=== PATIENT | female | born 1945 | race Caucasian/White ===

== ENCOUNTER → 2017-10-17 | Outpatient (CLI) | payer MEDICARE ==
[~2017-10-17] MED LIST: AMIT50; AMLO10 PO; AMLO5 PO; ASPI325 PO; ASPI81CH; ATEN50; ATEN50 PO; Aspir 8181 MG; CLOP75; CYCL10 PO; DIPATR; DIPATR PO; EZET10-20; EZET10-20 PO; GABA300 PO; GLIM2; GLIP5 PO; GLIP5ER; ISOMON60ER PO; Isosorbide Mono60 MG; LEVSOD100; LEVSOD100 PO; METF500 PO; METFORMIN HCL1000 MG; Neurontin300 MG; Nitrostat0.4 MG SL; Norvasc2.5 MG; PANT40; PANT40 PO; SIMV40 PO
[2017-10-17 19:11] LABS: BASOPHILS ABSOLUTE AUTO 0.03 K/mm3 (0.00-0.23); BASOPHILS PERCENT AUTO 0 % (0-2); EOSINOPHILS ABSOLUTE AUTO 0.18 K/mm3 (0.00-0.68); EOSINOPHILS PERCENT AUTO 2 % (0-6); Hemoglobin 12.5 g/dL (11.5-16.0); IMMATURE GRAN ABSOLUTE AUTO 0.04 K/mm3 (0.00-0.10); IMMATURE GRAN PERCENT AUTO 1 % (0-1); LYMPHOCYTES ABSOLUTE AUTO 1.74 K/mm3 (0.84-5.20); LYMPHOCYTES PERCENT AUTO 22 % (21-46); MONOCYTES ABSOLUTE AUTO 0.44 K/mm3 (0.16-1.47); MONOCYTES PERCENT AUTO 6 % (4-13); Mean Corpuscular HGB 27.7 pg (26.0-34.0); Mean Corpuscular HGB Conc 32.9 g/dL (31.5-36.5); Mean Corpuscular Volume 84 fL (80-100); Mean Platelet Volume 11.8 fL (9.1-12.4); NEUTROPHILS ABSOLUTE AUTO 5.53 K/mm3 (1.96-9.15); NEUTROPHILS PERCENT AUTO 69 % (41-73); Platelet Count 305 K/mm3 (150-400); RDW Coefficient Variation 13.6 % (11.7-14.2); Red Blood Cell Count 4.52 M/mm3 (3.80-5.20); White Blood Cell Count 7.96 K/mm3 (4.00-11.30)
[2017-10-17 19:14] LABS: Calcium, Blood 9.2 mg/dL (8.5-10.1)
== END | disposition home or self-care (01) ==
LOC: LAB EV 19:05 → LAB SHORT 19:05
PROVIDERS: Physician Assistant Surgical
DX: R53.83 Other fatigue (principal)
CPT/HCPCS: 80048; 85025

== ENCOUNTER 2018-05-27 06:43 | Day surgery (SDC) | payer MEDICARE ==
[~2018-05-27] VITALS: Ht 162.6 cm; Wt 67.8 kg
[~2018-05-27 06:43] MED LIST changes: +AMIT50 PO; +ASPI81CH PO; -ATEN50; +ATOR40TA PO; +Aspir 8181 MG PO; +CAL-CITRATE PL1 EACH PO; +CLOP75 PO; +DIPATRL; +FURO40 PO; +GABA600 PO; +GLIM2 PO; +GLIP10 PO; +GLIP10ER PO; -GLIP5ER; +GLIP5ER PO; +Glucophage1000 MG PO; +INSULANPEN SC; +ISOMON20 PO; +Isosorbide Mono60 MG PO; -LEVSOD100; +LEVSOD125 PO; +LISI5 PO; +Lasix40 MG PO; +METF500C PO; -METFORMIN HCL1000 MG; +METFORMIN HCL1000 MG PO; +NAPR220 PO; -Neurontin300 MG; +Neurontin300 MG PO; +PIOG15 PO; +PIOG30 PO; +PROBIOTIC1 EAC2 PO
== END 2018-05-27 08:40 | disposition home or self-care (01) ==
LOC: ORSCSDS 06:43
PROVIDERS: Ophthalmology
PROC: 08RK3JZ Replacement of Left Lens with Synthetic Substitute, Percutaneous Approach (ICD-10-PCS; principal; 2018-05-27 08:00)
DX: H25.12 Age-related nuclear cataract, left eye (principal); I10 Essential (primary) hypertension; I25.10 Atherosclerotic heart disease of native coronary artery without angina pectoris; E11.9 Type 2 diabetes mellitus without complications; E03.9 Hypothyroidism, unspecified; Z79.4 Long term (current) use of insulin; Z79.899 Other long term (current) drug therapy
CPT/HCPCS: 82947; J2001; J2250; J3010; J3301; J7120; V2632

== ENCOUNTER 2018-08-05 06:06 | Day surgery (SDC) | payer MEDICARE ==
[~2018-08-05] VITALS: Ht 162.6 cm; Wt 72.3 kg
[2018-08-05] MEDS ORDERED: COLE1 PO (06:39)
== END 2018-08-05 08:00 | disposition home or self-care (01) ==
LOC: ORSCSDS 06:06
PROVIDERS: Ophthalmology
PROC: 08RJ3JZ Replacement of Right Lens with Synthetic Substitute, Percutaneous Approach (ICD-10-PCS; principal; 2018-08-05 07:30)
DX: H25.11 Age-related nuclear cataract, right eye (principal); E11.9 Type 2 diabetes mellitus without complications; I10 Essential (primary) hypertension; I25.10 Atherosclerotic heart disease of native coronary artery without angina pectoris; K21.9 Gastro-esophageal reflux disease without esophagitis; Z79.899 Other long term (current) drug therapy; Z79.4 Long term (current) use of insulin; Z79.82 Long term (current) use of aspirin
CPT/HCPCS: 82947; J2001; J2250; J3010; J3301; V2632

== ENCOUNTER 2020-07-28 10:52 | Day surgery (SDC) | payer MEDICARE ==
[~2020-07-28] VITALS: Ht 162.6 cm; Wt 126.8 kg
[~2020-07-28 10:52] MED LIST changes: +Amlodipine Bes2.5 MG PO; +COLE1 PO; +COLESTID1 G1 PO; +GLUCOPHAGE1000 M1 PO; +INSULANI SC; +Isosorbide Mono30 MG PO; +LEVOTHYROXINE PO; +LOMOTIL 2.5-0.1 EACH; +NITR.4SL SL
== END 2020-07-28 13:26 | disposition home or self-care (01) ==
LOC: ORSCSDS 10:52
PROVIDERS: Internal Medicine Gastroenterology
PROC: 0DBE8ZX Excision of Large Intestine, Via Natural or Artificial Opening Endoscopic, Diagnostic (ICD-10-PCS; principal; 2020-07-28 12:00)
PROC: 0DB78ZX Excision of Stomach, Pylorus, Via Natural or Artificial Opening Endoscopic, Diagnostic (ICD-10-PCS; principal; 2020-07-28 12:00)
PROC: 0DB98ZX Excision of Duodenum, Via Natural or Artificial Opening Endoscopic, Diagnostic (ICD-10-PCS; principal; 2020-07-28 12:00)
DX: R19.7 Diarrhea, unspecified (principal); R63.4 Abnormal weight loss; R63.0 Anorexia; K44.9 Diaphragmatic hernia without obstruction or gangrene; K22.10 Ulcer of esophagus without bleeding; K29.70 Gastritis, unspecified, without bleeding; K57.30 Diverticulosis of large intestine without perforation or abscess without bleeding; K64.8 Other hemorrhoids; I10 Essential (primary) hypertension; E11.42 Type 2 diabetes mellitus with diabetic polyneuropathy; Z79.4 Long term (current) use of insulin; Z79.899 Other long term (current) drug therapy
CPT/HCPCS: 82947; 88305; 88342; J2704; J7120

== ENCOUNTER 2022-11-29 20:20 | Emergency (ER) | payer MEDICARE ==
[~2022-11-29] VITALS: Ht 162.6 cm; Wt 65.8 kg
[2022-11-29 20:29] VITALS: BP 136/63
[2022-11-29] MEDS ORDERED: ALOGLIPTIN25 M1 PO (20:32)
[2022-11-29] MEDS ORDERED: Aspir 8181 MG PO (20:33)
[2022-11-29] MEDS ORDERED: DONE5 PO (20:34)
[2022-11-29] MEDS ORDERED: SITA100T2 PO (20:35)
[2022-11-29] MEDS ORDERED: VASCEPA1 G1 PO (20:37)
[2022-11-29] MEDS ORDERED: Acetaminophen325 M1 PO (20:38)
== END 2022-11-29 22:45 | disposition home or self-care (01) ==
LOC: ER 20:20
DX: S32.591A Other specified fracture of right pubis, initial encounter for closed fracture (principal); E11.9 Type 2 diabetes mellitus without complications; I10 Essential (primary) hypertension; F03.90 Unspecified dementia, unspecified severity, without behavioral disturbance, psychotic disturbance, mood disturbance, and anxiety; W08.XXXA Fall from other furniture, initial encounter; Z88.5 Allergy status to narcotic agent; Z91.09 Other allergy status, other than to drugs and biological substances; Z79.82 Long term (current) use of aspirin; Z79.899 Other long term (current) drug therapy; Z79.890 Hormone replacement therapy; Z79.84 Long term (current) use of oral hypoglycemic drugs; Z95.5 Presence of coronary angioplasty implant and graft; Z87.891 Personal history of nicotine dependence
CPT/HCPCS: 73502; 73560-RT; 99283-25

== ENCOUNTER 2022-11-30 07:46 | Inpatient (IN) | payer MEDICARE ==
[~2022-11-30] VITALS: Ht 160 cm; Wt 54.4 kg
[~2022-11-30 07:46] MED LIST changes: +ALOGLIPTIN25 M1 PO; +Acetaminophen325 M1 PO; +DONE5 PO; +SITA100T2 PO; +VASCEPA1 G1 PO
[2022-11-30 12:05] LABS: BASOPHILS ABSOLUTE AUTO 0.01 K/mm3 (0.00-0.23); BASOPHILS PERCENT AUTO 0 % (0-2); EOSINOPHILS PERCENT AUTO 0 % (0-6); Hematocrit 39.2 % (33.0-51.0); Hemoglobin 13.9 g/dL (11.5-16.0); IMMATURE GRAN ABSOLUTE AUTO 0.11 K/mm3 (0.00-0.10); IMMATURE GRAN PERCENT AUTO 1 % (0-1); LYMPHOCYTES ABSOLUTE AUTO 0.94 K/mm3 (0.84-5.20); LYMPHOCYTES PERCENT AUTO 6 % (21-46); MONOCYTES ABSOLUTE AUTO 1.04 K/mm3 (0.16-1.47); MONOCYTES PERCENT AUTO 6 % (4-13); Mean Corpuscular HGB 30.3 pg (26.0-34.0); Mean Corpuscular HGB Conc 35.5 g/dL (31.5-36.5); Mean Corpuscular Volume 86 fL (80-100); Mean Platelet Volume 11.3 fL (9.1-12.4); NEUTROPHILS ABSOLUTE AUTO 14.25 K/mm3 (1.96-9.15); NEUTROPHILS PERCENT AUTO 87 % (41-73); Platelet Count 245 K/mm3 (150-400); RDW Coefficient Variation 12.7 % (11.7-14.2); RDW Standard Deviation 39.2 fL (35.1-46.3); Red Blood Cell Count 4.58 M/mm3 (3.80-5.20); White Blood Cell Count 16.35 K/mm3 (4.00-11.30)
[2022-11-30 12:39] LABS: Albumin, Blood 3.7 g/dL (3.4-5.0); Bilirubin, Total 2.9 mg/dL (0.1-1.0); Bun/Creatinine Ratio 32.3 (12.0-20.0); Calcium, Blood 9.1 mg/dL (8.5-10.1); Creatinine, Blood 0.77 mg/dL (0.40-1.00); Globulin, Blood 3.6 g/dL (2.2-4.0); Potassium, Blood 3.7 mmol/L (3.5-5.5); Total Protein, Blood 7.3 g/dL (6.4-8.2)
[2022-11-30 16:49] VITALS: BP 147/97
--- NOTE | 2022-11-30 16:50 | NUR ---
RECEIVED REPORT FROM ESTRELLA BARBER RN. REPORT GIVEN TO STEPHY JONES ASSUMING CARE ON SURGICAL FLOOR.
[2022-11-30 16:51] VITALS: BP 147/97
--- NOTE | 2022-11-30 16:56 | NUR ---
PT ARRIVED TO UNIT AT [facility]50 FROM ER. WHILE SETTLING PT IT WAS NOTED BY THIS RN THAT PT HAD STOOL AND DRIED BLOOD PRESENT TO VALENCIA AREA. VALENCIA CARE DONE, SMALL ABRASIONS/BRUISING/TEAR PRESENT, ACTIVLY BLEEDING FROM SMALL TEAR AT PROXIMAL LABIA MINORA. IN ROOM AND NOTIFIED OF FINDINGS. FEM CATH DONE, URINE CLOUDY W/SEDEMENT-SPECIMIN SENT FOR URINALYSIS W/CX IF INDICATED.
[2022-11-30 16:57] LABS: Source, Urine Fem Cath
[2022-11-30 17:51] LABS: Appearance, Urine Cloudy (Clear); Bilirubin, Urine Neg (Neg); Blood, Urine 4+ (Neg); Color, Urine Yellow (P-Yellow); Glucose Qualitative, Urine 2+ (Neg); Ketones, Urine 1+ (Neg); Leukocyte Esterase, Urine 3+ (Neg); Nitrite, Urine Pos (Neg); Protein, Urine 2+ (Neg); Urobilinogen, Urine NORM (Normal)
[2022-11-30 18:12] LABS: Bacteria Many /hpf; Red Blood Cells, Urine 0-2 /hpf (0-2); Squamous Epithelial Cells Rare /hpf (Few); Transitional Epithelial Cells Few /hpf (0-Rare); White Blood Cells, Urine 50-100 /hpf (0-5)
--- NOTE | 2022-11-30 19:00 | NUR ---
pt's family with pt in room. pt tolerating nursing interventions with verbal complaints, only minimal attempts to pull away while drawing blood and administering IV medication. pt is oriented to self. Pure-wick and attends in place.
[2022-11-30 20:05] VITALS: BP 152/69
[2022-12-01 03:52] VITALS: BP 180/78
[2022-12-01 05:15] LABS: Hematocrit 37.3 % (33.0-51.0); Hemoglobin 12.6 g/dL (11.5-16.0); Mean Corpuscular HGB Conc 33.8 g/dL (31.5-36.5); Mean Corpuscular Volume 89 fL (80-100); Mean Platelet Volume 10.9 fL (9.1-12.4); Platelet Count 184 K/mm3 (150-400); RDW Coefficient Variation 12.6 % (11.7-14.2); White Blood Cell Count 13.35 K/mm3 (4.00-11.30)
[2022-12-01 05:53] LABS: Calcium, Blood 7.9 mg/dL (8.5-10.1); Creatinine, Blood 0.57 mg/dL (0.40-1.00); Potassium, Blood 3.7 mmol/L (3.5-5.5)
[2022-12-01 06:53] VITALS: BP 150/78
--- NOTE | 2022-12-01 07:50 | NUR ---
SUMMARY PT REMAINED CONFUSED THROUGH THE NIGHT, SHE HAD REMOVED HER IV X2,CONTINUES TO BE COMBATIVE WITH STAFF, ON RA, VSS, PUREWICK IN PLACE, NO OTHER CHANGES NOTED, CALL LIGHT IN REACH, BED ALARM IS ON, REPORT GIVEN TO DAY RN
--- NOTE | 2022-12-01 13:23 | NUR ---
IV ACCESS: PT PULLED PERIPHERAL IV OUT. UNABLE TO GAIN ACCESS AFTER 2 ATTEMPTS. POWERGLIDE PLACED BY ANOTHER RN. ABLE TO MEDICATE FOR PAIN AND RESTART IV FLUIDS. PT NOT EATING AND ONLY TAKING SIPS OF FLUIDS. REMAINS ON SCHEDULED IV ABX. IV CONCEALED WITH LILLY WRAP AND SLEEVE. FAMILY AT BEDSIDE, HELPFUL AND ATTENTIVE. FAMILY ABLE TO GET PT TO TAKE AM MEDS THAT SHE REFUSED.
--- NOTE | 2022-12-01 17:51 | NUR ---
VOICEMAIL LEFT WITH [facility] [phone] AT 1751 REGARDING THE ASSESSMENT FINDINGS OF ABRASIONS/TEARS/BRUISING ON LABIA MINOR YESTERDAY.
[2022-12-01 18:25] VITALS: BP 140/77
[2022-12-01 19:21] VITALS: BP 146/71
--- NOTE | 2022-12-01 19:47 | NUR ---
PT HAS BEEN CONFUSED AND COMBATIVE THIS SHIFT. PT RESISTANT TO MOST CARE. FAMILY ABLE TO GET PT TO TAKE MEDS THIS AFTERNOON AFTER SHE SPIT THEM FOR THIS RN. TURNING IN BED TOLERATED. PT HAD POWERGLIDE PLACED FOR MULTIPLE IV STARTS THAT SHE PULLED. SECURED AND INFUSING AT THIS TIME. PT HAS POOR PO INTAKE, OFFERING SIPS OF FLUIDS FREQUENTLY. DENTURES REMOVED AND CLEANED. PUREWICK IN PLACE WITH ATTENDS OVER IT. PAIN MANAGED WITH PRN FENTANYL. BLOOD SUGARS STABLE AND TREATED ORDERED. UA FROM PREVIOUS DAY BEING CULTURED PER DOCTORS ORDERS. BED ALARM ON FOR SAFETY.
[2022-12-02 05:40] VITALS: BP 168/88
--- NOTE | 2022-12-02 06:20 | NUR ---
SUMMARY NO CHANGES NOTED THROUGH THE NIGHT. PT HAS BEEN ABLE TO REST/SLEEP, PT CONTINUES TO REFUSE CARE AT TIMES BUT HAS BEEN MORE PLEASANT, WILLING TO TAKE MEDS & DRINK WATER. NS INFUSING @125 ML/HR PER EMAR, URINE REMAINS TIFFANI, INCONTINENCE NOTED, ATTENDS CHANGED PRN, Q2 TURNS, BED ALARM IS ON FOR SAFETY, CALL LIGHT IN REACH.
[2022-12-02 07:59] VITALS: BP 150/75
[2022-12-02 11:25] LABS: Hematocrit 32.9 % (33.0-51.0); Hemoglobin 11.3 g/dL (11.5-16.0); Mean Corpuscular HGB 29.7 pg (26.0-34.0); Mean Corpuscular HGB Conc 34.3 g/dL (31.5-36.5); Mean Corpuscular Volume 86 fL (80-100); Mean Platelet Volume 10.9 fL (9.1-12.4); Platelet Count 170 K/mm3 (150-400); RDW Coefficient Variation 12.5 % (11.7-14.2); RDW Standard Deviation 40.2 fL (35.1-46.3); Red Blood Cell Count 3.81 M/mm3 (3.80-5.20); White Blood Cell Count 10.19 K/mm3 (4.00-11.30)
[2022-12-02 11:52] LABS: Albumin, Blood 2.5 g/dL (3.4-5.0); Anion Gap 7 mmol/L (6-16); Blood Urea Nitrogen 5 mg/dL (8-24); Bun/Creatinine Ratio 9.9 (12.0-20.0); CO2, Blood 27 mmol/L (21-32); Calcium, Blood 7.7 mg/dL (8.5-10.1); Chloride, Blood 103 mmol/L (98-108); Glomerular Filtration Rate 97 (60-); Glucose, Blood 153 mg/dL (70-99); Phosphorus, Blood 2.5 mg/dL (2.5-4.9); Potassium, Blood 3.3 mmol/L (3.5-5.5); Sodium, Blood 137 mmol/L (136-145)
--- NOTE | 2022-12-02 12:45 | NUR ---
URINARY RETENTION PT HAS BEEN COMPLAINING OF NEEDING TO VOID. PT HAS BEEN HAVING WET ATTENDS BUT CONTINUES TO COMPLAIN OF HER BLADDER FEELING FULL. BLADDER SCAN AT 1130 SHOWED >650ML IN BLADDER. WHEN SETTING UP FOR STRAIGHT CATH PT VOIDED A SMALL AMOUNT, BLADDER SCAN SHOWED 711ML IN HER BLADDER AFTER SHE VOIDED. STRAIGHT CATH PLACED AND 550ML OF URINE EMPTIED FROM PT'S BLADDER, SHE IS NO LONGER COMPLAINING OF THE URGE TO VOID. STRAIGHT CATH COMPLETED WITH [facility] ASSISTANCE. PT AND HER SON WERE EDUCATED ABOUT THE USE OF A STRAIGHT CATH. PT ANTIONETTE DECLINED STRAIGHT CATH BUT WHEN SHE WAS UNABLE TO EMPTY HER BLADDER SHE CONSENTED. SHE TOLERATED THE CATHETER PLACEMENT WELL. DURING PLACEMENT OF CATHETER PT'S PERSONAL AREAS APPEARED FREE OF REDNESS, IRRITATION, DRAINAGE, BLEEDING AND BRUISING. URINE WAS SLIGHTLY CLOUDY.
--- NOTE | 2022-12-02 13:00 | NUR ---
PT WAS ASSISTED TO SIT UP FOR LUNCH AND BEGAN COMPLAINING OF DISCOMFORT TO HER L THIGH AREA. SHE STATED SOMETHING WAS TO TIGHT ON HER LEG. ATTENDS WERE LOOSENED. PT BEGAN TO TRY TO PLACE HER HANDS INSIDE HER ATTENDS. SHE THEN STATED THAT SHE COULD NOT GET HE HANDS IN HER ATTENDS. THIS RN ATTEMPTED TO REDIRECT PT TO HER LUNCH TRAY. SHE WAS DISTRACTABLE AND WAS ASSISTED WITH TRAY SET UP. WHEN THIS RN LEFT THE ROOM PT WAS SITTING UP IN THE BED EATING INDEPENDENTLY, CALL LIGHT WITHIN REACH.
--- NOTE | 2022-12-02 15:04 | NUR ---
APS TRENA ARRIVED AT APPROXIMATELY 1400. APS NOTIFIED POLICE OF CONCERNS PREVIOUSLY REPORTED. OFFICER NOW PRESENT TO TALK TO PT WITH HER SON IN THE ROOM.
[2022-12-02 15:32] VITALS: BP 146/71
--- NOTE | 2022-12-02 16:12 | NUR ---
SHIFT SUMMARY ORTHO CONSULTED, AWAITING PLAN. PT HAS BEEN ALERT AND ORIENTED X1 THIS SHIFT. PT HAS HAD URINARY RETENTION AND INCONTINENCE. STRAIGHT CATH X1 FOR RETENTION. FAMILY VISITED PT. APS AND POLICE CAME TO SPEAK WITH PT AND FAMILY TODAY. PT RESTING IN BED CALL LIGHT WITHIN REACH.
--- NOTE | 2022-12-02 16:31 | NUR ---
DR. MCDONALD ROUNDED. DISCUSSED L SHOULDER PAIN, URINARY RETENTION, AND PO PAIN MEDS. NO SWELLING NOTED TO L SHOULDER, PER DR. MCDONALD NO INTERVENTION NEEDED AT THIS TIME. PER DR. MCDONALD CONTINUE WITH STRAIGHT CATH FOR URINARY RETENTION. CONTINUE TYLENOL USE FOR PAIN MANAGEMENT AND FENTANYL FOR BREATHROUGH PAIN.
[2022-12-02 17:31] VITALS: BP 179/76
--- NOTE | 2022-12-02 17:31 | NUR ---
Pt is pleasantly confused. She has a POLST from 2007 that deems her as a Full Code. Her son was here earlier today, but was preoccupied with other priorities. Attempted to call him this evening, but there was no answer and no voicemail has been set up. Will attempt to contact him again in the morning. No pain or discomfort noted via FLACC scale.
--- NOTE | 2022-12-02 18:15 | NUR ---
TACHYCARDIA AND HTN PT'S HR STARTED TRENDING UP THIS AFTERNOON/EVENING. PT'S HR RANGING FROM 125 TO 135, BP 179/76. DR. MCDONALD NOTIFIED. EKG ORDERED AND COMPLETED, IT SHOWED SINUS TACH. FENTANYL GIVEN FOR PAIN. HR IMPROVED TO 120'S.
[2022-12-02 18:21] VITALS: BP 148/71
[2022-12-02 19:28] VITALS: BP 142/70
[2022-12-03 03:22] VITALS: BP 156/66
[2022-12-03 06:10] LABS: Albumin, Blood 2.3 g/dL (3.4-5.0); Anion Gap 6 mmol/L (6-16); Blood Urea Nitrogen 8 mg/dL (8-24); Bun/Creatinine Ratio 14.9 (12.0-20.0); CO2, Blood 27 mmol/L (21-32); Calcium, Blood 7.4 mg/dL (8.5-10.1); Chloride, Blood 104 mmol/L (98-108); Creatinine, Blood 0.54 mg/dL (0.40-1.00); Glomerular Filtration Rate 95 (60-); Glucose, Blood 171 mg/dL (70-99); Phosphorus, Blood 3.1 mg/dL (2.5-4.9); Potassium, Blood 3.4 mmol/L (3.5-5.5); Sodium, Blood 137 mmol/L (136-145)
--- NOTE | 2022-12-03 06:42 | NUR ---
Shift Summary Pt arrived from surgical floor with Fx R hip, potential UTI and dehydration. She is AOx1-2 with a hx of severe dementia. She is on bedrest and is very painful to move her hip in any way. She was unable t/o the shift, two bladder scans were done and the last one showed 496 mL. Two straight caths were attempted and failed due to difficulty maneuvering pt without hurting her hip. Pt rcving NS@100.
[2022-12-03 07:46] VITALS: BP 154/58
--- NOTE | 2022-12-03 12:14 | NUR ---
CALLED CALLED TO NOTIFY OF PT'S PAIN. PT REFUSING REPOSITIONING DUE TO UNCONTROLLED PAIN. WHEN REPOSITIONED, PT IN TEARS, RESISTING, AND PRESSURE ULCER DEVELOPING IN SACRUM AREA. NO ORDERS RECEIVED.
[2022-12-03 15:33] VITALS: BP 135/71
--- NOTE | 2022-12-03 16:23 | NUR ---
CASE CONFERENCE: Pt has severe dementia, lives at [facility], but son states the facility has stated her level have care has exceeded what they can provide. However, in speaking with pt's son Sarmad, he may change the plan of care. Sarmad reports he and his nurse have been primary caregivers for several years, and once he thinks about it, states the patient has had a significant weight loss over the past year, as well as a very poor appetite. He also states his mom used to say she wanted "DNR tattooed on her chest" before her dementia gotten "So bad". Sarmad reports he and will talk tonight and decide on next steps.
--- NOTE | 2022-12-03 17:49 | NUR ---
SHIFT SUMMARY PT A&O TO PERSON, SELF, AND PLACE. REQUIRES REORIENTATION AND IS FORGETFUL. HX OF DEMENTIA. PT NOT AMB AND INITIALLY REFUSED PHYSICAL THERAPY THIS AM, DID NOT TOLERATE WELL. VSS, PUREWICK IN PLACE, TOLERATING PO, AND PAIN CONT TO BE DIFFICULT TO CONTROL. SEE PREVIOUS NOTE. CALL LIGHT WITHIN REACH AND PT ABLE TO MAKE NEEDS KNWON.
--- NOTE | 2022-12-03 18:51 | NUR ---
Received call from pt's son and daughter in law. They request change to DNR and comfort care, home with hospice. Spoke to Dr. Pate, and she is ok with changing to comfort, but will continue to treat UTI with antibiotics, then work on returning pt home with hospice.
--- NOTE | 2022-12-04 06:08 | NUR ---
NOC SHIFT SUMMARY: PLAN IS FOR PATIENT TO GO HOME WITH SON AND HIS ON HOSPICE. PATIENT ALERT TO SELF. VERY PAINFUL TO TURN. FENTANYL GIVEN THIS AM.
[2022-12-04 07:23] VITALS: BP 160/70
--- NOTE | 2022-12-04 12:16 | NUR ---
Spoke to assigned CM this am. Unfortunately it sounds like pt's son Sarmad is confused regarding hospice, and possible move from [facility]. The pt has been living at [facility] for some time now, and according to Sarmad, the facility had requested the pt be moved to a higher level of care due to increased care needs. However, since Sarmad had decided to pursue hospice for the patient upon discharge, I advised him to let [facility] know, as they may be amenable to continue caring for her with her major change in condition along with assistance from hospice. It would be the best scenario if pt was able to remain in familiar to the home she is accustomed to. Unsure yet if this is possible, as [facility] now states they must reassess the pt when their RN is available. In the meantime, the pt is being reviewed for possible admission to [place], but of course family would rather she stay where she is. Palliative Care will remain available.
--- NOTE | 2022-12-04 17:45 | NUR ---
SHIFT SUMMARY PT PAIN MANAGEMENT IMPROVED THIS SHIFT. NO OTHER ACUTE CHANGES. CALL LIGHT WITHIN REACH AND PT ABLE TO MAKE NEEDS KNOWN.
--- NOTE | 2022-12-05 04:04 | NUR ---
SHIFT SUMMARY PATIENT ALERT, FORGETFUL, PLEASANTLY CONFUSED. CONTNUES ON COMFORT CARE. STATES HAS PAIN ONLY WHEN MOVING RLE. PAIN MANAGED PER EMAR. BED ALARM ON FOR PATIENT SAFETY. NO ACUTE CHANGES NOTED OVERNIGHT. BED LOCKED AND IN LOWEST POSITION, CALL LIGHT WITHIN REACH.
--- NOTE | 2022-12-05 17:31 | NUR ---
PT'S SON REQUESTED STAFF VERIFY THAT PT'S WALLET IS WITH HER IN THE ROOM. IT IS IN A PT BELONGINGS BAG AT THE BEDSIDE. PT VERIFIED IT'S HER WALLET. PLACED CALL TO SON DEJUAN TO CONFIRM & ASSURE THT THE WALLET IS WITH THE PT.
--- NOTE | 2022-12-05 17:51 | NUR ---
SHIFT SUMMARY NO ACUTE CHANGES. CALL LIGHT WITHIN REACH AND PT ABLE TO MAKE NEEDS KNOWN.
--- NOTE | 2022-12-06 05:15 | NUR ---
FRANCISCA SLEPT WELL MOST OF THE NIGHT. MEDICATED 3 TIMES WITH 10MG ROXYNOL FOR POSITION CHANGES. BARRIER CREAM ON GLUTEAL FOLDS FOR PROTECTION. SACRAL AREA RED BUT BLANCHES SAME OVER THAT WELL
--- NOTE | 2022-12-06 16:59 | NUR ---
DAYSHIFT SUMMARY Patient alert & oriented x2, no acute changes to patient status. Patient c/o pain t/o body. Unable to described severity, patient appears comfortable ut fidgity. PRN MS administred 1x for pain. Vitals stable. Awaiting discharge planning.
--- NOTE | 2022-12-06 17:00 | NUR ---
Patients Wallet Son (Sarmad) at bedside today, son told RN that he needed the patients wallet to file out documentation. Patient stated it was okay for her son to take her wallet home. Left note in chart, stating son has wallet.
--- NOTE | 2022-12-06 22:07 | NUR ---
patient pulled power glide from left upper arm and set it aside on the table. no bleeding,redness or any other drainage noted. patient's arm cleansed and bandaid placed on site. call placed to MD to inform
--- NOTE | 2022-12-07 04:48 | NUR ---
patient was less cooperative with care overnight refusing to even try her HS medications after she had agreed to take them in pudding. She also pulled her power glide and removed her purewick (at a later time). ORDER RECEIVED TO LEAVE IV OUT UNTIL DAY HOSPITALIST COULD DETERMINE WHETHER SHE REALLY NEEDED AN ACCESS. NO OTHER CHANGES OVERNIGHT
--- NOTE | 2022-12-07 18:32 | NUR ---
SHIFT SUMMARY- PT IS ALERT. PLESANT AND COOPERATIVE. SHE SLEPT INTERMITENTLY THORUGHOUT THIS SHIFT. FAMILY WAS AT BEDSIDE THIS SHIFT. HER BED IS IN THE LOW POSITON AND CALL LIGHT IS WITHIN REACH.
--- NOTE | 2022-12-08 03:42 | NUR ---
FRANCISCA IS STILL RUBBING BOTH EYES RAW. OINTMENT WAS PUT IN AND AROUND, AND THAT SEEMS TO HAVE SLOWED HER DOWN. TRIED TREE TIMES TO ADMINISTER PILLS, AND SHE WOULD TAKE THEM THEN PUSH THEM OUT WITH HER TONGUE UNTIL THERE WAS NOTHING LEFT. THE PATIENT ACCEPTED ROXYNOL TWICE AND SLEPT WELL INBETWEEN
--- NOTE | 2022-12-08 18:03 | NUR ---
SHIFT SUMMARY: COMFORT CARE ASSESSMENTS COMPLETED. NO ACUTE EVENTS THIS SHIFT. PT REFUSED TO ALLOW STAFF TO TURN D/T PAIN. PAIN MEDICATIONS GIVEN PER EMAR. RUBBING EYES THROUGHOUT DAY. ALLOWED EYE OINTMENT WITH AM MEDS BUT REFUSED IN AFTERNOON. COLD RAG APPLIED TO EYES FOR COMFORT. REFUSED FOOD THIS SHIFT BUT WOULD OCCASIONALLY HAVE FEW SIPS OF WATER. NO IV ACCESS ADDED TO INTERVENTIONS. FAMILY AT BEDSIDE A COUPLE HOURS THIS SHIFT. CALL LIGHT IN REACH. BED IN LOWEST POSITION. CURRENTLY SLEEPING COMFORTABLY.
--- NOTE | 2022-12-09 04:26 | NUR ---
mary carmen was exquisitely painful each time she was touched last night. Morphine requirements were maxed out at 20mg before. and 15-20 minutes after that, administering 15more mg to get to a tolerable level so she can relax again. Mary Carmen is still refusing all oral medications as she has for the last few days.
[2022-12-09] MEDS ORDERED: LIDO700A20 TOP (10:08)
[2022-12-09] MEDS ORDERED: MORP20L SL (10:13)
[2022-12-09] MEDS ORDERED: ONDA4ODT MM (10:14)
[2022-12-09] MEDS ORDERED: MIRALAX17 GM PO (10:14)
[2022-12-09] MEDS ORDERED: GENTEAL TEARS3.5 GM BOTHEYES (10:20)
--- NOTE | 2022-12-09 11:47 | NUR ---
DISCHARGE: PT D/C @1130 VIA TRANSPORT TO [facility]. NO IV ACCESS IN PLACE. MEPILEX IN PLACE ON COCCYX. PT BRIEF CHANGED PRIOR TO D/C. PT SLEPT WELL THIS MORNING. APPLIED EYE OINTMENT. PT STILL LICKING FINGERS AND RUBBING EYES. PACKET SENT WITH TRANSPORTHARD SCRIPT FOR ROXANOL IN PACKET.
== END 2022-12-09 11:35 | disposition hospice, home (50) | DRG 871 ==
LOC: ER 07:46 → SURS 07:47 → MEDS 17:27 → ENPENDDIS 12-09 09:11 → MEDS 12-09 11:35
PROVIDERS: ADMIT Internal Medicine
DX: A41.51 Sepsis due to Escherichia coli [E. coli] (principal); S32.431A Displaced fracture of anterior column [iliopubic] of right acetabulum, initial encounter for closed fracture; S32.591A Other specified fracture of right pubis, initial encounter for closed fracture; N39.0 Urinary tract infection, site not specified; E11.9 Type 2 diabetes mellitus without complications; I25.10 Atherosclerotic heart disease of native coronary artery without angina pectoris; Z66 Do not resuscitate; Z51.5 Encounter for palliative care; W18.30XA Fall on same level, unspecified, initial encounter; E78.5 Hyperlipidemia, unspecified; E03.9 Hypothyroidism, unspecified; E53.8 Deficiency of other specified B group vitamins; M85.80 Other specified disorders of bone density and structure, unspecified site; E86.0 Dehydration; M54.9 Dorsalgia, unspecified; E66.9 Obesity, unspecified; G30.9 Alzheimer's disease, unspecified; F02.80 Dementia in other diseases classified elsewhere, unspecified severity, without behavioral disturbance, psychotic disturbance, mood disturbance, and anxiety; S30.814A Abrasion of vagina and vulva, initial encounter; E87.6 Hypokalemia; R29.6 Repeated falls; Z90.49 Acquired absence of other specified parts of digestive tract; Z95.5 Presence of coronary angioplasty implant and graft; Z88.5 Allergy status to narcotic agent; Z88.8 Allergy status to other drugs, medicaments and biological substances; Z98.890 Other specified postprocedural states; Z87.891 Personal history of nicotine dependence; Z90.89 Acquired absence of other organs; Z79.82 Long term (current) use of aspirin; Z79.890 Hormone replacement therapy; Z79.84 Long term (current) use of oral hypoglycemic drugs; Z79.899 Other long term (current) drug therapy; Z91.048 Other nonmedicinal substance allergy status; Z68.21 Body mass index [BMI] 21.0-21.9, adult
CPT/HCPCS: 36415; 72192; 73502; 80048; 80053; 80069; 81001; 82947; 83605; 85025; 85027; 87040; 87077; 87086; 87186; 93005; 93010; 94762; 96374; 96375; 97110; 97162; 99284-25; A9270; G0378; J0696; J1650; J2405; J3010; J7030